=== PATIENT | male | born 1995 | race African-American/Black ===

== ENCOUNTER 2018-11-23 14:27 | Emergency (ER) | payer MEDICAID ==
[~2018-11-23] VITALS: Ht 177.8 cm; Wt 68.0 kg
--- NOTE | 2018-11-23 14:44 | NUR ---
ED Nurse Note: Patient walked into ED c/o rashes on sides of nose that he first noticed this morning around 0800. No complaint of pain. AOx4, VSS. No report of using new skin products or medications. Will cont to monitor.
[2018-11-23 14:45] VITALS: BP 104/64
--- NOTE | 2018-11-23 15:10 | Emergency Room Report ---
History of Present Illness General Chief Complaint: Skin Rash/Abscess Source: Patient Present Illness HPI 23-year-old male presents to the emergency department complaining of discolored hypopigmented rash that began becoming more prominent on his face. Patient reports that last year he began having some symptoms on his back he does denies itching at the time. Patient reports lesions on his face have a mild itch she denies burning he denies pain he reports some swelling sensation. Pt. denies fevers, chills or swollen tender lymph nodes. Denies lesions/rashes elsewhere on the body. Denies new medications or body washes or creams. Denies swelling of the lips, tongue , throat or airway. Denies wheezing, or shortness of breath. Denies recent travel, recent illness or ill contacts. denies blisters , oral lesions, or sloughing of the skin Allergies: Coded Allergies: No Known Allergies (Unverified , 11/23/18) Patient History Past Medical History: see triage record Past Surgical History: none Pertinent Family History: none Immunizations: UTD Reviewed Nursing Documentation: PMH: Agreed; PSxH: Agreed Nursing Documentation-PMH Past Medical History: No Stated History Review of Systems All Other Systems: negative except mentioned in HPI Physical Exam Vital Signs Date Time Temp Pulse Resp B/P (MAP) Pulse Ox O2 Delivery O2 Flow Rate FiO2 11/23/18 14:36 98.2 51 18 104/64 (77) 98 Room Air Sp02 EP Interpretation: reviewed, normal General Appearance: no apparent distress, alert, GCS 15, non-toxic Head: normocephalic, atraumatic Eyes: bilateral eye normal inspection, bilateral eye PERRL ENT: hearing grossly normal, normal voice, other Neck: full range of motion Respiratory: chest non-tender, lungs clear, normal breath sounds, no wheezing, speaking full sentences Cardiovascular #1: regular rate, rhythm Genitourinary: normal inspection Musculoskeletal: back normal, gait/station normal, normal range of motion, non- tender Neurologic: alert, oriented x3, responsive, motor strength/tone normal, sensory intact, speech normal, grossly normal Psychiatric: judgement/insight normal Skin: normal color, warm/dry, well hydrated, rash - Multiple discrete hypopigmented small plaques with annular order no erythema no excoriations no blisters no vesicles no sloughing of the skin. No crusting. Small plaques or located across the nasal bridge and across the cheek as well as generalized across upper back. Medical Decision Making PA Attestation Dr. Borrero is my supervising Physician whom patient management has been discussed with. Diagnostic Impression: Primary Impression: Rash and other nonspecific skin eruption ER Course 23-year-old male presents to the emergency department complaining of discolored hypopigmented rash that began becoming more prominent on his face. Patient reports that last year he began having some symptoms on his back he does denies itching at the time. Patient reports lesions on his face have a mild itch she denies burning he denies pain he reports some swelling sensation. Pt. denies fevers, chills or swollen tender lymph nodes. Denies lesions/rashes elsewhere on the body. Denies new medications or body washes or creams. Denies swelling of the lips, tongue , throat or airway. Denies wheezing, or shortness of breath. Denies recent travel, recent illness or ill contacts. denies blisters , oral lesions, or sloughing of the skin Ddx considered but are not limited to cellulitis, scabies, shingles, varicella, dermatitis, urticaria, eczema, tinea, viral exanthem, SJS Vital signs: are WNL, pt. is afebrile H&PE are most consistent with Rash- suspicious for fungal - tinea versicolor. No evidence to suggest impending airway compromise or anaphylaxis. ORDERS: none required at this time, the diagnosis is clinical ED INTERVENTIONS: None required at this time. DISCHARGE: At this time pt. is stable for d/c to home. Will provide printed patient care instructions, and any necessary prescriptions. Care plan and follow up instructions have been discussed with the patient prior to discharge. Last Vital Signs Date Time Temp Pulse Resp B/P (MAP) Pulse Ox O2 Delivery O2 Flow Rate FiO2 11/23/18 14:45 98.2 53 18 104/64 98 Room Air Disposition: HOME, SELF-CARE Condition: Stable Scripts Nystatin* (NYSTATIN*) 15 Gm Cream..g. 1 APPLIC TOPIC THREE TIMES A DAY, #15 GM Prov: Jazmin Amanda 11/23/18 Ketoconazole (KETOCONAZOLE) 120 Ml Shampoo 1 APPLIC TP BID, #120 ML 2 Refills Prov: Jazmin Amanda 6/2/19 Hydrocortisone 2% Cream (ANTI-ITCH 2% CREAM) Y Cr 1 APPLIC TP BID, #28 GM Prov: Jazmin Amanda 11/23/18 Patient Instructions: Rash, Tinea Versicolor, [id number] Additional Instructions: Take medications as directed. Follow up with a Primary Care Provider in 3-5 days for DERMATOLOGY REFERRAL , even if your symptoms have resolved. --Please review list of primary care clinics, if you do not already have a primary care provider Return sooner to ED if new symptoms occur, or current symptoms become worse. - Please note that this Emergency Department Report was dictated using [employer] board coater operator technology software, occasionally this can lead to erroneous entry secondary to interpretation by the dictation equipment. Jazmin Amanda Nov 23, 2018 15:09
[2018-11-23] MEDS ORDERED: NYSTATIN15 GM TOPIC (15:17)
[2018-11-23] MEDS ORDERED: KETOCONAZOLE120 ML TP (15:17)
[2018-11-23] MEDS ORDERED: ANTI-ITCH28 G1 TP (15:17)
[2018-11-23 15:30] VITALS: BP 104/64
--- NOTE | 2018-11-23 15:30 | NUR ---
ER DISCHARGE NOTE: Patient is cleared to be discharged per ERMD, pt is aox4, on room air, with stable vital signs. pt was given dc and prescription instructions, pt was able to verbalize understanding, pt id band removed. pt is able to ambulate with steady gait. pt took all belongings.
== END 2018-11-23 15:30 | disposition home or self-care (01) ==
LOC: EMR 15:06
DX: R21 Rash and other nonspecific skin eruption (principal)
CPT/HCPCS: 99282